=== PATIENT | male | born 1965 | race Caucasian/White ===

== ENCOUNTER 2017-02-26 08:33 | Inpatient (IN) | payer BC, OTHER ==
[~2017-02-26] VITALS: Ht 177.8 cm; Wt 93.0 kg
[2017-02-26] MEDS ORDERED: DICYCLOMINE HCL 20 MG TABLET PO PRN (13:00)
[2017-02-26] MEDS ORDERED: hydrALAZINE HCL 50 MG TABLET PO PRN ×2 (13:00→18:45)
[2017-02-26] MEDS ORDERED: ACETAMINOPHEN 325 MG TABLET PO PRN (13:00)
[2017-02-26] MEDS ORDERED: LORAZEPAM 2 MG/1 ML VIAL IM PRN (13:00)
[2017-02-26] MEDS ORDERED: MIRALAX 17 GM POWD.PACK PO PRN (13:00)
[2017-02-26] MEDS ORDERED: LOPERAMIDE HCL 2 MG CAPSULE PO PRN ×2 (13:00)
[2017-02-26] MEDS ORDERED: IBUPROFEN 600 MG TABLET PO PRN (13:00)
[2017-02-26] MEDS ORDERED: METHOCARBAMOL 750 MG TABLET PO PRN (13:00)
[2017-02-26] MEDS ORDERED: ONDANSETRON 4 MG/2 ML VIAL IM PRN (13:00)
[2017-02-26] MEDS ORDERED: MAGNESIUM HYDROXIDE 30 ML LIQUID UDC PO PRN (13:00)
[2017-02-26] MEDS ORDERED: diphenhydrAMINE 50 MG CAPSULE PO PRN (13:00)
[2017-02-26] MEDS ORDERED: BUPRENORPHINE HCL 2 MG TAB.SUBL SL PRN (13:00)
[2017-02-26] MEDS ORDERED: LORAZEPAM 1 MG TABLET PO PRN ×2 (13:00)
[2017-02-26] MEDS ORDERED: ONDANSETRON ODT 4 MG TAB.RAPDIS SL PRN (13:00)
[2017-02-26] MEDS ORDERED: CLONIDINE HCL 0.1 MG TABLET PO PRN (13:00)
[2017-02-26 13:01] VITALS: BP 140/89
[2017-02-26 14:15] LABS: *AMPHETAMINE, URINE POSITIVE (NEGATIVE); *BARBITURATE, URINE NEGATIVE (NEGATIVE); *CANNABINOID, URINE NEGATIVE (NEGATIVE); *COCCAINE, URINE NEGATIVE (NEGATIVE); *OPIATE, URINE POSITIVE (NEGATIVE); *PHENCYCLIDINE SCREEN,URINE NEGATIVE (NEGATIVE)
[2017-02-26] MEDS ORDERED: LISI-603 PO (15:36)
[2017-02-26] MEDS ORDERED: MONT10TA25 PO (15:36)
[2017-02-26] MEDS ORDERED: ASPI-612 PO (15:36)
[2017-02-26] MEDS ORDERED: VENL150C58 PO (15:36)
[2017-02-26] MEDS ORDERED: METF-494 PO (15:36)
[2017-02-26] MEDS ORDERED: TRAZ-147 PO (15:36)
[2017-02-26] MEDS ORDERED: BECL8.7A6 IH (15:36)
[2017-02-26] MEDS ORDERED: ALPR2TAB7 PO (15:36)
[2017-02-26] MEDS ORDERED: AMLO5TAB2 PO (15:36)
[2017-02-26 15:57] LABS: BASOPHILS % (AUTO) 0.3 % (0.0-2.0); EOSINOPHILS # (AUTO) 0.1 K/uL (0.0-0.7); EOSINOPHILS % (AUTO) 1.4 % (0.0-7.0); HEMATOCRIT 51.5 % (40-50); HEMOGLOBIN 17.5 G/DL (14.0-18.0); LYMPHOCYTES # (AUTO) 1.7 K/UL (0.8-4.8); LYMPHOCYTES % (AUTO) 19.7 % (20.5-51.5); MEAN CORPUSCULAR HEMOGLOBIN 29.1 UUG (27.0-31.0); MEAN CORPUSCULAR HGB CONC 34 g/dL (32.0-37.0); MEAN CORPUSCULAR VOLUME 85.9 FL (82.0-92.0); MONOCYTES # (AUTO) 0.7 K/UL (0.1-1.30); MONOCYTES % (AUTO) 8.2 % (0.0-11.0); NEUTROPHILS # (AUTO) 6.1 K/UL (1.8-8.9); NEUTROPHILS % (AUTO) 70.4 % (38.5-71.5); PLATELET COUNT (AUTO) 271 K/UL (150-450); WHITE BLOOD COUNT (AUTO) 8.6 K/UL (4.0-11.2)
[2017-02-26 16:00] VITALS: BP 136/82
[2017-02-26 16:09] LABS: ETHANOL < 3 MG/DL (0-0)
[2017-02-26 16:11] LABS: ALANINE AMINOTRANSFERASE 126 U/L (16-63); ALKALINE PHOSPHATASE 64 U/L (50-136); ASPARTATE AMINOTRANSFERASE 40 U/L (15-37); BILIRUBIN,TOTAL 0.6 mg/dL (0.2-1.0); CARBON DIOXIDE 27 mmol/L (21-32); CHLORIDE 101 mmol/L (98-107); CHOLESTEROL 138 mg/dL (<200); CREATININE 1.3 mg/dL (0.6-1.3); GLUCOSE 177 mg/dL (74-106); HDL CHOLESTEROL 38 mg/dL (40-60); MAGNESIUM 2.3 mg/dL (1.8-2.4); POTASSIUM 3.8 mmol/L (3.5-5.1); TOTAL PROTEIN, SERUM 7.8 g/dL (6.4-8.2); TRIGLYCERIDES 86 MG/DL (30-150); UREA NITROGEN, BLOOD 34 mg/dL (7-18)
[2017-02-26] MEDS ORDERED: ALBUTEROL SULFATE 2.5 MG/ 0.5 ML NEBU NEB PRN (18:30)
[2017-02-26] MEDS ORDERED: ALBUTEROL SULFATE 2.5 MG/3 ML NEBU NEB PRN (18:45)
[2017-02-26 20:10] VITALS: BP 127/76
[2017-02-26] MEDS ORDERED: BUPRENORPHINE HCL 2 MG TAB.SUBL SL SCH (21:00)
[2017-02-26] MEDS ORDERED: LORAZEPAM 1 MG TABLET PO SCH (21:00)
[2017-02-26] MEDS: TRAZODONE 100 MG TABLET PO SCH (22:14)
[2017-02-26] MEDS: GABAPENTIN 300 MG CAPSULE PO SCH (22:14)
[2017-02-26] MEDS: METFORMIN 750 MG PO SCH (22:15)
[2017-02-26] MEDS: MONTELUKAST 10 MG PO SCH (22:15)
[2017-02-27] VITALS (7 sets, daily range): BP systolic 124–153; BP diastolic 74–97
[2017-02-27 06:06] LABS: HEPATITIS B SURFACE AG Negative (Negative)
[2017-02-27] MEDS: LORAZEPAM 1 MG TABLET PO SCH ×3 (08:54→21:00)
[2017-02-27] MEDS: VENLAFAXINE XR 150 MG CAP.SR.24H PO SCH (08:55)
[2017-02-27] MEDS: BUPRENORPHINE HCL 2 MG TAB.SUBL SL SCH ×3 (08:57→21:00)
[2017-02-27] MEDS: LISINOPRIL 20 MG PO SCH (08:57)
[2017-02-27] MEDS: AMLODIPINE 5 MG PO SCH (08:57)
[2017-02-27] MEDS: GABAPENTIN 300 MG CAPSULE PO SCH ×3 (08:58→21:13)
[2017-02-27] MEDS ORDERED: TUBERCULIN,PURIF.PROT.DERIV. 5 TU/0.1 ML TEST ID ONE (09:00)
[2017-02-27] MEDS: QVAR 80 MCG INH SCH (09:00)
[2017-02-27] MEDS: MAG HYDROX/AL HYDROX/SIMETH 30 ML LIQUID UDC PO PRN (09:08)
[2017-02-27] MEDS: ASPIRIN 81 MG PO SCH (09:08)
[2017-02-27] MEDS ORDERED: LORAZEPAM 1 MG TABLET PO PRN ×2 (14:00)
[2017-02-27] MEDS ORDERED: BUPRENORPHINE HCL 2 MG TAB.SUBL SL PRN (14:00)
[2017-02-27] MEDS: DICYCLOMINE HCL 20 MG TABLET PO SCH ×2 (15:33→21:13)
[2017-02-27] MEDS: METFORMIN 750 MG PO SCH (18:15)
[2017-02-27] MEDS: MONTELUKAST 10 MG PO SCH (21:13)
[2017-02-27] MEDS: TRAZODONE 100 MG TABLET PO SCH (21:13)
[2017-02-28 00:50] VITALS: BP 144/91
[2017-02-28 04:29] VITALS: BP 139/77
[2017-02-28 08:00] VITALS: BP 107/74
[2017-02-28] MEDS ORDERED: BUPRENORPHINE HCL 2 MG TAB.SUBL SL SCH (09:00)
[2017-02-28] MEDS: QVAR 80 MCG INH SCH (09:00)
[2017-02-28] MEDS: ASPIRIN 81 MG PO SCH (09:02)
[2017-02-28] MEDS: LISINOPRIL 20 MG PO SCH (09:02)
[2017-02-28] MEDS: AMLODIPINE 5 MG PO SCH (09:02)
[2017-02-28] MEDS: LORAZEPAM 1 MG TABLET PO SCH ×3 (09:03→21:54)
[2017-02-28] MEDS: DICYCLOMINE HCL 20 MG TABLET PO SCH ×3 (09:03→21:49)
[2017-02-28] MEDS: VENLAFAXINE XR 150 MG CAP.SR.24H PO SCH (09:03)
[2017-02-28] MEDS: GABAPENTIN 300 MG CAPSULE PO SCH ×3 (09:03→21:49)
[2017-02-28 12:00] VITALS: BP 137/79
[2017-02-28] MEDS: BUPRENORPHINE HCL 2 MG TAB.SUBL SL SCH ×2 (14:30→21:54)
[2017-02-28 16:00] VITALS: BP 122/79
[2017-02-28] MEDS: METFORMIN 750 MG PO SCH (17:52)
[2017-02-28 20:30] VITALS: BP 120/69
[2017-02-28] MEDS: MONTELUKAST 10 MG PO SCH (21:49)
[2017-02-28] MEDS: TRAZODONE 100 MG TABLET PO SCH (21:49)
[2017-02-28] MEDS: MAG HYDROX/AL HYDROX/SIMETH 30 ML LIQUID UDC PO PRN (21:54)
[2017-03-01 00:24] VITALS: BP 104/55
[2017-03-01 04:14] VITALS: BP 127/83
[2017-03-01 08:00] VITALS: BP 136/74
[2017-03-01] MEDS: QVAR 80 MCG INH SCH (09:00)
[2017-03-01] MEDS: LISINOPRIL 20 MG PO SCH (09:23)
[2017-03-01] MEDS: BUPRENORPHINE HCL 2 MG TAB.SUBL SL SCH ×3 (09:24→20:38)
[2017-03-01] MEDS: DICYCLOMINE HCL 20 MG TABLET PO SCH ×3 (09:24→20:38)
[2017-03-01] MEDS: LORAZEPAM 1 MG TABLET PO SCH ×2 (09:24→20:38)
[2017-03-01] MEDS: ASPIRIN 81 MG PO SCH (09:24)
[2017-03-01] MEDS: GABAPENTIN 300 MG CAPSULE PO SCH ×3 (09:24→20:38)
[2017-03-01] MEDS: VENLAFAXINE XR 150 MG CAP.SR.24H PO SCH (09:24)
[2017-03-01] MEDS: AMLODIPINE 5 MG PO SCH (09:24)
[2017-03-01 12:00] VITALS: BP 124/82
[2017-03-01 16:00] VITALS: BP 123/80
[2017-03-01] MEDS: METFORMIN 750 MG PO SCH (17:33)
[2017-03-01 20:36] VITALS: BP 144/87
[2017-03-01] MEDS: TRAZODONE 100 MG TABLET PO SCH (20:38)
[2017-03-01] MEDS: MONTELUKAST 10 MG PO SCH (20:38)
[2017-03-02] VITALS (7 sets, daily range): BP systolic 126–148; BP diastolic 68–92
[2017-03-02] MEDS: DICYCLOMINE HCL 20 MG TABLET PO SCH ×3 (09:00→21:02)
[2017-03-02] MEDS ORDERED: BUPRENORPHINE HCL 2 MG TAB.SUBL SL SCH (09:00)
[2017-03-02] MEDS: AMLODIPINE 5 MG PO SCH (09:00)
[2017-03-02] MEDS: GABAPENTIN 300 MG CAPSULE PO SCH ×3 (09:00→21:02)
[2017-03-02] MEDS: VENLAFAXINE XR 150 MG CAP.SR.24H PO SCH (09:00)
[2017-03-02] MEDS ORDERED: LORAZEPAM 1 MG TABLET PO SCH (09:00)
[2017-03-02] MEDS: ASPIRIN 81 MG PO SCH (09:00)
[2017-03-02] MEDS: LISINOPRIL 20 MG PO SCH (09:00)
[2017-03-02] MEDS: QVAR 80 MCG INH SCH (09:00)
[2017-03-02] MEDS: METFORMIN 750 MG PO SCH (17:23)
[2017-03-02] MEDS ORDERED: GABA-534 PO (17:44)
[2017-03-02] MEDS ORDERED: DICY20TA28 PO (17:44)
[2017-03-02] MEDS: TRAZODONE 100 MG TABLET PO SCH (21:02)
[2017-03-02] MEDS: MONTELUKAST 10 MG PO SCH (21:02)
[2017-03-02] MEDS: MAG HYDROX/AL HYDROX/SIMETH 30 ML LIQUID UDC PO PRN (22:19)
[2017-03-03 08:00] VITALS: BP 127/82
[2017-03-03] MEDS: VENLAFAXINE XR 150 MG CAP.SR.24H PO SCH (08:13)
[2017-03-03] MEDS: DICYCLOMINE HCL 20 MG TABLET PO SCH (08:13)
[2017-03-03] MEDS: LISINOPRIL 20 MG PO SCH (08:13)
[2017-03-03] MEDS: GABAPENTIN 300 MG CAPSULE PO SCH (08:13)
[2017-03-03] MEDS: ASPIRIN 81 MG PO SCH (08:13)
[2017-03-03] MEDS: AMLODIPINE 5 MG PO SCH (08:13)
[2017-03-03] MEDS: QVAR 80 MCG INH SCH (08:31)
== END 2017-03-03 09:33 | DRG 895 ==
LOC: SRC 11:49
PROVIDERS: ADMIT Internal Medicine; ATTEND Internal Medicine
PROC: HZ2ZZZZ Detoxification Services for Substance Abuse Treatment (ICD-10-PCS; principal; 2017-02-26)
PROC: HZ41ZZZ Group Counseling for Substance Abuse Treatment, Behavioral (ICD-10-PCS; 2017-02-28)
PROC: HZ31ZZZ Individual Counseling for Substance Abuse Treatment, Behavioral (ICD-10-PCS; 2017-03-01)
DX: F11.23 Opioid dependence with withdrawal (principal); E87.3 Alkalosis; I15.9 Secondary hypertension, unspecified; F15.288 Other stimulant dependence with other stimulant-induced disorder; E78.5 Hyperlipidemia, unspecified; F17.211 Nicotine dependence, cigarettes, in remission; F41.9 Anxiety disorder, unspecified; G47.00 Insomnia, unspecified; J45.20 Mild intermittent asthma, uncomplicated; Z81.1 Family history of alcohol abuse and dependence; F13.230 Sedative, hypnotic or anxiolytic dependence with withdrawal, uncomplicated; Z81.8 Family history of other mental and behavioral disorders; Z82.49 Family history of ischemic heart disease and other diseases of the circulatory system; E86.0 Dehydration; F32.9 Major depressive disorder, single episode, unspecified; Z79.84 Long term (current) use of oral hypoglycemic drugs; Z79.899 Other long term (current) drug therapy; Z79.82 Long term (current) use of aspirin; Z20.5 Contact with and (suspected) exposure to viral hepatitis; Z91.89 Other specified personal risk factors, not elsewhere classified; R74.0 Nonspecific elevation of levels of transaminase and lactic acid dehydrogenase [LDH]
CPT/HCPCS: 36415; 70030-TC; 80307; 80324; 80346; 80361; 83735; 85025; 86592; 86705; 86803; 87340; 87806; A4663; G0480; Q0162